=== PATIENT | male | born 1995 | race Hispanic/Latino ===

== ENCOUNTER 2018-12-25 06:13 | Emergency (ER) | payer SELFPAY ==
[2018-12-25] MEDS ORDERED: NA CHLORIDE 0.9% 1,000 ML ONE ×2 (06:35→07:43)
[2018-12-25 06:52] LABS: Absolute Lymphocytes (CBC) 2.7 K/uL (0.7-4.9); Basophils % 0.7 % (0-1.3); Hematocrit 52.4 % (39.6-49.0); Lymphocytes % 26.8 % (15.3-44.8); MPV 9.4 fL (7.6-11.3); RBC Red Blood Cell Count 6.25 M/uL (4.33-5.43)
[2018-12-25 07:06] LABS: ALT/SGPT 61 U/L (12-78); AST/SGOT 23 U/L (15-37); Albumin 5.2 g/dL (3.4-5.0); Alkaline Phosphatase 89 U/L (45-117); BUN Blood Urea Nitrogen 11 mg/dL (7-18); Bicarbonate 25 mmol/L (21-32); Bilirubin Direct 0.3 mg/dL (0-0.2); Bilirubin Total 1.1 mg/dL (0.2-1.0); Creatine Phosphokinase 449 U/L (39-308); Glucose Level 100 mg/dL (74-106); Lipase 91 U/L (73-393); Potassium 3.4 mmol/L (3.5-5.1); Protein, Total 9.2 g/dL (6.4-8.2); Sodium Level 141 mmol/L (136-145)
--- NOTE | 2018-12-25 09:22 | ER ---
[facility] Name: Oli Sarabia Age: 23 yrs Sex: Male : 1995 Arrival Date: 12/25/2018 Time: 06:15 Bed 6 Private MD: Diagnosis: Anxiety disorder, unspecified;Insomnia, unspecified;Adverse effect of unspecified psychostimulants Presentation: 12/25 06:28 Presenting complaint: Patient states: "I think my withdrawals are getting bad"; Patient lp1 states he stopped smoking Synthetic marijuana 3 days ago and has been unable to sleep, chills, N/V, diarrhea, anxiety x 2 days; Patient states increasing dose of Melatonin every night to help sleep with no relief. Transition of care: patient was not received from another setting of care. Onset of symptoms was December 25, 2018. Risk Assessment: Do you want to hurt yourself or someone else? Patient reports no desire to harm self or others. Initial Sepsis Screen: Does the patient meet any 2 criteria? No. Patient's initial sepsis screen is negative. Does the patient have a suspected source of infection? No. Patient's initial sepsis screen is negative. Care prior to arrival: None. 06:28 Method Of Arrival: Ambulatory lp1 06:28 Acuity: ARMAND 3 lp1 Historical: - Allergies: 06:32 No Known Allergies; lp1 - Home Meds: 06:32 None [Active]; lp1 - PMHx: 06:32 None; lp1 - PSHx: 06:32 arm surgery; lp1 - Immunization history:: Adult Immunizations up to date. - Social history:: Smoking status: Patient uses tobacco products, Patient uses Synthetic marijuana, Patient/guardian denies using street drugs. - Ebola Screening: : No symptoms or risks identified at this time. Screenin:32 Abuse screen: Denies threats or abuse. Denies injuries from another. Nutritional lp1 screening: No deficits noted. Tuberculosis screening: No symptoms or risk factors identified. Fall Risk None identified. Assessment: 06:40 General: Appears uncomfortable, Behavior is anxious, Reports chills for 1-2 days. Pain: lp1 Denies pain. Neuro: Level of Consciousness is awake, alert, obeys commands, Oriented to person, place, time, situation, Gait is steady, Reports paresthesias to general body. Cardiovascular: Capillary refill < 3 seconds in bilateral fingers Rhythm is sinus rhythm. Respiratory: Respiratory effort is even, unlabored, Respiratory pattern is regular, Breath sounds are clear bilaterally. GI: Reports diarrhea, nausea, vomiting. : No signs and/or symptoms were reported regarding the genitourinary system. EENT: No signs and/or symptoms were reported regarding the EENT system. Derm: Skin is intact, Skin is diaphoretic, Skin is normal. Musculoskeletal: No deficits noted. 07:15 Reassessment: Patient appears in no apparent distress at this time. Patient and/or hb family updated on plan of care and expected duration. Pain level reassessed. Patient is alert, oriented x 3, equal unlabored respirations, skin warm/dry/pink. 08:15 Reassessment: Patient appears in no apparent distress at this time. No changes from hb previously documented assessment. Patient and/or family updated on plan of care and expected duration. Pain level reassessed. Patient is alert, oriented x 3, equal unlabored respirations, skin warm/dry/pink. 09:00 Reassessment: Patient appears in no apparent distress at this time. Patient and/or hb family updated on plan of care and expected duration. Pain level reassessed. Patient is alert, oriented x 3, equal unlabored respirations, skin warm/dry/pink. Vital Signs: 06:30 BP 157 / 109; Pulse 111; Resp 18; Temp 97.9(O); Pulse Ox 100% on R/A; Weight 99.79 kg; lp1 Height 5 ft. 11 in. (180.34 cm); Pain 0/10; 06:55 BP 145 / 98; Pulse 72; Resp 16; Pulse Ox 98% on R/A; lp1 08:00 BP 144 / 83; Pulse 78; Resp 15; Pulse Ox 100% on R/A; hb 09:15 BP 133 / 76; Pulse 74; Resp 15; Pulse Ox 100% on R/A; Pain 0/10; hb 06:30 Body Mass Index 30.68 (99.79 kg, 180.34 cm) lp1 ED Course: 06:15 Patient arrived in ED. ag3 06:19 [facility] snw 06:19 Christiano Gray MD is Attending Physician. snw 06:28 Ida Quinones, RN is Primary Nurse. lp1 06:30 Triage completed. lp1 06:30 Arm band placed on. lp1 06:32 Patient has correct armband on for positive identification. shoe cementer on. Pulse lp1 ox on. NIBP on. 06:40 Inserted saline lock: 20 gauge in right antecubital area, using aseptic technique. lp1 Blood collected. 09:35 No provider procedures requiring assistance completed. IV discontinued, intact, hb bleeding controlled, No redness/swelling at site. Pressure dressing applied. Administered Medications: 06:40 Drug: NS 0.9% 1000 ml Route: IV; Rate: 1 bolus; Site: right antecubital; lp1 08:10 Follow up: Response: No adverse reaction; IV Status: Completed infusion; IV Intake: hb 1000ml 08:14 Drug: NS 0.9% 1000 ml Route: IV; Rate: 1 bolus; Site: right antecubital; hb 09:34 Follow up: Response: No adverse reaction; IV Status: Completed infusion; IV Intake: hb 1000ml Intake: 08:10 IV: 1000ml; Total: 1000ml. hb 09:34 IV: 1000ml; Total: 2000ml. hb Outcome: 09:18 Discharge ordered by MD. snw 09:35 Discharged to home ambulatory. hb 09:35 Condition: stable 09:35 Discharge instructions given to patient, Instructed on discharge instructions, follow up and referral plans. medication usage, Demonstrated understanding of instructions, follow-up care, medications, Prescriptions given X 1. 09:37 Patient left the ED. hb Signatures: Livier Mejia, BAND SHOVER-C BAND SHOVER-Csnw Ida Quinones, DEXTER RN lp1 Mima Buck, DEXTER RN Moni Johnson ag3
--- NOTE | 2018-12-25 09:23 | EDPHYS ---
Physician Documentation [facility] Name: Oli Sarabia Age: 23 yrs Sex: Male : 1995 Arrival Date: 12/25/2018 Time: 06:15 Bed 6 Private MD: ED Physician Christiano Gray HPI: 12/25 06:53 This 23 yrs old Male presents to ER via Ambulatory with complaints of CHILLS, snw NOT ABLE TO SLEEP AT NIGHT. 06:53 pt feels he may be having withdrawal type symptoms post synthetic use and increasing snw doses of melatonin. Onset: The symptoms/episode began/occurred gradually. Severity of symptoms: At their worst the symptoms were moderate. The patient has not experienced similar symptoms in the past. The patient has not recently seen a physician. Historical: - Allergies: 06:32 No Known Allergies; lp1 - Home Meds: 06:32 None [Active]; lp1 - PMHx: 06:32 None; lp1 - PSHx: 06:32 arm surgery; lp1 - Immunization history:: Adult Immunizations up to date. - Social history:: Smoking status: Patient uses tobacco products, Patient uses Synthetic marijuana, Patient/guardian denies using street drugs. - Ebola Screening: : No symptoms or risks identified at this time. ROS: 06:46 Eyes: Negative for injury, pain, redness, and discharge, ENT: Negative for injury, snw pain, and discharge, Neck: Negative for injury, pain, and swelling. 06:46 Respiratory: Negative for shortness of breath, cough, wheezing, and pleuritic chest pain, Abdomen/GI: Negative for abdominal pain, nausea, vomiting, diarrhea, and constipation, Back: Negative for injury and pain, : Negative for injury, bleeding, discharge, and swelling, MS/Extremity: Negative for injury and deformity, Skin: Negative for injury, rash, and discoloration. 06:46 Neuro: Negative for headache, weakness, numbness, tingling, and seizure. 06:46 Constitutional: Positive for anxiety. 06:46 Cardiovascular: Positive for palpitations. 06:46 Psych: Positive for anxiety, insomnia, smoking synthetic every 2-3 hours x 2 weeks, as pt was unable to sleep, he has been taking melatonin in increasing doses. Exam: 06:46 Head/Face: Normocephalic, atraumatic. Eyes: Pupils equal round and reactive to light, snw extra-ocular motions intact. Lids and lashes normal. Conjunctiva and sclera are non-icteric and not injected. Cornea within normal limits. Periorbital areas with no swelling, redness, or edema. ENT: Nares patent. No nasal discharge, no septal abnormalities noted. Tympanic membranes are normal and external auditory canals are clear. Oropharynx with no redness, swelling, or masses, exudates, or evidence of obstruction, uvula midline. Mucous membranes moist. Neck: Trachea midline, no thyromegaly or masses palpated, and no cervical lymphadenopathy. Supple, full range of motion without nuchal rigidity, or vertebral point tenderness. No Meningismus. Chest/axilla: Normal chest wall appearance and motion. Nontender with no deformity. No lesions are appreciated. 06:46 Respiratory: Lungs have equal breath sounds bilaterally, clear to auscultation and percussion. No rales, rhonchi or wheezes noted. No increased work of breathing, no retractions or nasal flaring. Abdomen/GI: Soft, non-tender, with normal bowel sounds. No distension or tympany. No guarding or rebound. No evidence of tenderness throughout. Back: No spinal tenderness. No costovertebral tenderness. Full range of motion. Skin: Warm, diaphoretic with normal turgor. Normal color with no rashes, no lesions, and no evidence of cellulitis. MS/ Extremity: Pulses equal, no cyanosis. Neurovascular intact. Full, normal range of motion. Neuro: Awake and alert, GCS 15, oriented to person, place, time, and situation. Cranial nerves II-XII grossly intact. Motor strength 5/5 in all extremities. Sensory grossly intact. Cerebellar exam normal. Normal gait. 06:46 Constitutional: The patient appears alert, awake, anxious. 06:46 Constitutional: The patient appears diaphoresis 06:46 Cardiovascular: Rate: tachycardic, Rhythm: regular, Pulses: no pulse deficits are appreciated. Vital Signs: 06:30 BP 157 / 109; Pulse 111; Resp 18; Temp 97.9(O); Pulse Ox 100% on R/A; Weight 99.79 kg; lp1 Height 5 ft. 11 in. (180.34 cm); Pain 0/10; 06:55 BP 145 / 98; Pulse 72; Resp 16; Pulse Ox 98% on R/A; lp1 08:00 BP 144 / 83; Pulse 78; Resp 15; Pulse Ox 100% on R/A; hb 09:15 BP 133 / 76; Pulse 74; Resp 15; Pulse Ox 100% on R/A; Pain 0/10; hb 06:30 Body Mass Index 30.68 (99.79 kg, 180.34 cm) lp1 MDM: 06:19 Patient medically screened. snw 08:40 Data reviewed: vital signs, nurses notes. Data interpreted: Pulse oximetry: on room air snw is 100 %. Interpretation: normal. Counseling: I had a detailed discussion with the patient and/or guardian regarding: the historical points, exam findings, and any diagnostic results supporting the discharge/admit diagnosis, the presence of at least one elevated blood pressure reading (>120/80) during this emergency department visit, lab results, the need for outpatient follow up, for definitive care, to return to the emergency department if symptoms worsen or persist or if there are any questions or concerns that arise at home. Response to treatment: the patient's symptoms have mildly improved after treatment. Special discussion: I have referred the patient to see his PCP for further evaluation of high blood pressure. Based on the history and exam findings, there is no indication for further emergent testing or inpatient evaluation. I discussed with the patient/guardian the need to see the primary care provider for further evaluation of the symptoms. I discussed with the patient/guardian the need to see the psychiatrist for further evaluation of the symptoms. 12/25 06:29 Order name: Basic Metabolic Panel; Complete Time: 07:19 snw 12/25 06:29 Order name: CBC with Diff; Complete Time: 06:55 snw 12/25 06:29 Order name: Hepatic Function; Complete Time: 07:19 snw 12/25 06:29 Order name: Lipase; Complete Time: 07:19 snw 12/25 06:29 Order name: CPK; Complete Time: 07:19 snw 12/25 06:29 Order name: IV Saline Lock; Complete Time: 06:53 snw 12/25 06:29 Order name: Labs collected and sent; Complete Time: 06:53 snw Administered Medications: 06:40 Drug: NS 0.9% 1000 ml Route: IV; Rate: 1 bolus; Site: right antecubital; lp1 08:10 Follow up: Response: No adverse reaction; IV Status: Completed infusion; IV Intake: hb 1000ml 08:14 Drug: NS 0.9% 1000 ml Route: IV; Rate: 1 bolus; Site: right antecubital; hb 09:34 Follow up: Response: No adverse reaction; IV Status: Completed infusion; IV Intake: hb 1000ml Disposition: 20:35 Co-signature as Attending Physician, Christiano Gray MD. rn Disposition: 12/25/18 09:18 Discharged to Home. Impression: Anxiety disorder, unspecified, Insomnia, unspecified, Adverse effect of unspecified psychostimulants. - Condition is Stable. - Discharge Instructions: Dehydration, Adult, Insomnia, Addiction and the Family, Generalized Anxiety Disorder, Rehydration, Adult, What You Need To Know About Illegal Drug Use and Dependence, Youth. - Prescriptions for Benadryl 25 mg Oral Capsule - take 1 capsule by ORAL route Every night As needed May take 1-2 capsules for sleep; 16 tablet. - Work release form, Medication Reconciliation Form, Thank You Letter, Antibiotic Education, Prescription Opioid Use, Family Work Release form. - Follow up: Private Physician; When: 2 - 3 days; Reason: Recheck today's complaints, Continuance of care, Re-evaluation by your physician. Follow up: Emergency Department; When: As needed; Reason: Worsening of condition. Signatures: Dispatcher [employer] EDTN Livier Mejia, CRAB STEAMER-C CRAB STEAMER-Csnw Christiano Gray MD MD rn Pena, Laura, RN RN 1 Mima Buck RN RN Corrections: (The following items were deleted from the chart) 09:37 09:18 12/25/2018 09:18 Discharged to Home. Impression: Anxiety disorder, unspecified; hb Insomnia, unspecified; Adverse effect of unspecified psychostimulants. Condition is Stable. Discharge Instructions: Dehydration, Adult, Insomnia, Addiction and the Family, Generalized Anxiety Disorder, What You Need To Know About Illegal Drug Use and Dependence, Youth, Rehydration, Adult. Forms are Work release form, Medication Reconciliation Form, Thank You Letter, Antibiotic Education, Prescription Opioid Use. Follow up: Private Physician; When: 2 - 3 days; Reason: Recheck today's complaints, Continuance of care, Re-evaluation by your physician. Follow up: Emergency Department; When: As needed; Reason: Worsening of condition. snw
== END 2018-12-25 09:37 | disposition home or self-care (01) ==
LOC: ER 06:13
DX: F41.9 Anxiety disorder, unspecified (principal); F12.10 Cannabis abuse, uncomplicated; G47.00 Insomnia, unspecified; T78.8XXA Other adverse effects, not elsewhere classified, initial encounter; X58.XXXA Exposure to other specified factors, initial encounter; Z72.0 Tobacco use
CPT/HCPCS: 36415; 80048; 80076; 82550; 83690; 85025; 96360; 96361; 99284; J7030

== ENCOUNTER 2021-08-18 16:40 | Inpatient (IN) | payer SELFPAY ==
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
[2021-08-18] MEDS ORDERED: NA CHLORIDE 0.9% 2,000 ML ONE (16:47)
[2021-08-18] MEDS ORDERED: NA CHLORIDE 0.9% 1,000 ML ONE (16:55)
[2021-08-18] MEDS ORDERED: CEFAZOLIN SODIUM 1 GM/VIAL ONE (16:55)
[2021-08-18] MEDS ORDERED: FENTANYL CITR 100 MCG/2 ML ONE (16:55)
[2021-08-18] MEDS ORDERED: TETANUS & DIPHTHERIA TOX,ADULT 0.5 ML VIAL ONE (16:56)
[2021-08-18] MEDS ORDERED: NA CHLORIDE 0.9% 100 ML IV ONE (16:56)
[2021-08-18 17:01] LABS: Absolute Lymphocytes (CBC) 7.8 K/uL (0.7-4.9); Hematocrit 49.7 % (39.6-49.0); Lymphocytes % 47.5 % (15.3-44.8); MPV 9.1 fL (7.6-11.3); RBC Red Blood Cell Count 5.89 M/uL (4.33-5.43)
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
[2021-08-18 17:20] LABS: Potassium 2.7 mmol/L (3.5-5.1)
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
[2021-08-18] MEDS ORDERED: ONDANSETRON 4 MG/2 ML VIAL IV PRN (17:50)
[2021-08-18] MEDS ORDERED: POTASSIUM CL SA 10 MEQ TAB PO ONE (17:54)
[2021-08-18] MEDS ORDERED: HYDROMORPHONE HCL 1 MG/ML INJ ONE ×2 (17:57→18:23)
[2021-08-18] MEDS: CEFAZOLIN 1 GM in NA CHLORIDE 0.9% 50 ML IVPB SCH (18:00)
[2021-08-18] MEDS ORDERED: ONDANSETRON 4 MG/2 ML VIAL ONE (18:24)
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
[2021-08-18] MEDS: HYDROMORPHONE HCL 1 MG/ML INJ IV PRN (20:30)
[2021-08-18] MEDS: NA CHLORIDE 0.9% 1,000 ML IV SCH (20:32)
[2021-08-18] MEDS: HYDROCODONE/APAP 7.5/325 MG TAB PO PRN (20:33)
[2021-08-18 21:16] VITALS: BMI 35.5
[2021-08-19] MEDS: HYDROMORPHONE HCL 1 MG/ML INJ IV PRN ×4 (00:10→12:19)
[2021-08-19] MEDS: CEFAZOLIN 1 GM in NA CHLORIDE 0.9% 50 ML IVPB SCH ×2 (00:23→05:05)
[2021-08-19] MEDS: HYDROCODONE/APAP 7.5/325 MG TAB PO PRN ×3 (01:11→10:20)
[2021-08-19] MEDS: NA CHLORIDE 0.9% 1,000 ML IV SCH (05:04)
[2021-08-19 05:21] LABS: Absolute Lymphocytes (CBC) 3.2 K/uL (0.7-4.9); Hematocrit 45.7 % (39.6-49.0); Lymphocytes % 28.2 % (15.3-44.8); MPV 9.5 fL (7.6-11.3); RBC Red Blood Cell Count 5.38 M/uL (4.33-5.43)
[2021-08-19 05:37] VITALS: O2SAT 100
[2021-08-19 06:02] LABS: BUN Blood Urea Nitrogen 6 mg/dL (7-18); Bicarbonate 24 mmol/L (21-32); Glucose Level 101 mg/dL (74-106); Potassium 4.1 mmol/L (3.5-5.1); Sodium Level 140 mmol/L (136-145)
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
[2021-08-19] MEDS ORDERED: MUPIROCIN 2% OINT 22GM TUBE TOP SCH (09:00)
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
[2021-08-19 12:11] VITALS: BP 129/81; TEMP 97.9
[2021-08-19] MEDS ORDERED: CEFAZOLIN 1 GM in NA CHLORIDE 0.9% 50 ML IVPB SCH (17:00)
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
== END 2021-08-19 13:30 | disposition home or self-care (01) | DRG 605 ==
LOC: ER 16:40 → EEVIPCON 17:43 → ERHOLD 17:43 → 3RD-ICU 19:50 → OBSVTOIN 08-19 08:31
PROVIDERS: ADMIT Surgery; ATTEND Surgery
DX: S21.131A Puncture wound without foreign body of right front wall of thorax without penetration into thoracic cavity, initial encounter (principal); S41.131A Puncture wound without foreign body of right upper arm, initial encounter; X95.9XXA Assault by unspecified firearm discharge, initial encounter; Y92.009 Unspecified place in unspecified non-institutional (private) residence as the place of occurrence of the external cause; Z20.822 Contact with and (suspected) exposure to COVID-19; Z23 Encounter for immunization
CPT/HCPCS: 36415; 71045; 71260; 74177; 80048; 85025; 86850; 86900; 86901; 90471; 90714; 94010; 96374; 96375; 99291; G0378; G0390; J0690; J1170; J2405; J3010; J7030; Q9967; U0003